=== PATIENT | male | born 1965 ===

== ENCOUNTER 2021-10-16 17:14 | Emergency (ER) | payer SELFPAY ==
[~2021-10-16] VITALS: Ht 175.3 cm; Wt 95.0 kg
--- NOTE | 2021-10-16 17:24 | PHYS DOC ---
General Adult EDM: Chief Complaint: SUICIDAL IDEATION HPI: HPI: Patient is a 56-year-old male coming in via EMS. A park police was driving with the patient is on standing up on it. Patient states he was getting ready to jump and has a 2 page suicide note in his car. Patient admits to methamphetamine and alcohol use today. Patient states he has been feeling depressed and hopeless for the past 2 to 3 months. Patient states he is a history of depression but no other medical conditions. States he otherwise been well. Patient states he has never had to stay inpatient for a psychiatric problem before. (IVETTE RUTHERFORD MD) Review of Systems: Review of Systems: All other systems within normal limits except for as noted in the HPI (IVETTE RUTHERFORD MD) Physical Exam: PE: Constitutional: Well developed, well nourished, no acute distress, non-toxic appearance. [] HENT: Normocephalic, atraumatic, bilateral external ears normal, nose normal. [] Eyes: PERRLA, conjunctiva normal, no discharge. [] Neck: No rigidity, supple, no stridor. [] Cardiovascular: Regular rate and rhythm, brisk cap refill [] Lungs & Thorax: Non labored symmetric respirations, no tachypnea or respiratory distress [] Abdomen: Soft, nondistended. Skin: Warm, dry, no erythema, no rash. [] Back: Unremarkable Extremities: No deformities, range of motion grossly intact, no lower extremity edema [] Neurologic: Alert and oriented X 3, no focal deficits noted. [] Psychologic: Tearful, suicidal ideations. No hallucinations. Answer questions appropriately (IVETTE RUTHERFORD MD) EKG: EKG: Sinus rhythm, heart rate 84 beats minute, normal axis, normal intervals, no STEMI. [] (IVETTE RUTHERFORD MD) Radiology/Procedures: Radiology/Procedures: [] (IVETTE RUTHERFORD MD) Heart Score: C/O Chest Pain: No Risk Factors: Risk Factors: DM, Current or recent (<one month) smoker, HTN, HLP, family history of CAD, obesity. Risk Scores: Score 0 - 3: 2.5% MACE over next 6 weeks - Discharge Home Score 4 - 6: 20.3% MACE over next 6 weeks - Admit for Clinical Observation Score 7 - 10: 72.7% MACE over next 6 weeks - Early Invasive Strategies (IVETTE RUTHERFORD MD) Course & Med Decision Making: Course & Med Decision Making Pertinent Labs and Imaging studies reviewed. (See chart for details) Patient pending labs and PAT evaluation at shift change [] (IVETTE RUTHERFORD MD) Course & Med Decision Making Patient care handed off to me at checkout pending psychiatric team liaison evaluation and possible placement. Patient awake alert and oriented in no acute distress. Vital signs nonconcerning. Laboratory analysis notable for alcohol and methamphetamine. Rapid influenza and COVID-negative. Patient able to eat without issue. Patient medically stable and amenable to transfer for inpatient care at . (VERA CABRALES MD) Dragon Disclaimer: Dragon Disclaimer: This electronic medical record was generated, in whole or in part, using a voice recognition dictation system. (IVETTE RUTHERFORD MD) Departure Departure: Impression: Primary Impression: Suicidal ideations IVETTE RUTHERFORD MD Oct 16, 2021 17:24 VERA CABRALES MD Oct 17, 2021 00:30
[2021-10-16 18:31] LABS: BASO # 0.1 x10^3/uL (0.0-0.2); BASO % 2 % (0-3); EOS # 0.1 x10^3/uL (0.0-0.7); EOS % 1 % (0-3); HEMATOCRIT 38.3 % (39.0-53.0); HEMOGLOBIN 13.1 g/dL (13.0-17.5); LYMPH # 2.7 x10^3/uL (1.0-4.8); LYMPH % 36 % (24-48); MEAN CORPUSCULAR HEMOGLOBIN 32 pg (25-35); MEAN CORPUSCULAR HGB CONC 34 g/dL (31-37); MEAN CORPUSCULAR VOLUME 93 fL (79-100); MONO # 0.5 x10^3/uL (0.0-1.1); MONO % 7 % (0-9); NEUT # 4.2 x10^3uL (1.8-7.7); NEUT % 55 % (31-73); PLATELET COUNT 229 x10^3/uL (140-400); RED BLOOD COUNT 4.11 x10^6/uL (4.30-5.70); WHITE BLOOD COUNT 7.6 x10^3/uL (4.0-11.0)
[2021-10-16 18:35] LABS: CLARITY,URINE CLEAR; COLOR,URINE YELLOW; GLUCOSE,URINE NEG (NEG)
[2021-10-16 18:36] LABS: BACTERIA,URINE 0 /HPF (0-FEW); NITRITE,URINE NEG (NEG); RBC,URINE 0 /HPF (0-2); UROBILINOGEN,URINE 0.2 mg/dL (0.2 mg/dL); WBC,URINE 0 /HPF (0-4)
[2021-10-16 18:36] LABS: CALCIUM 8.3 mg/dL (8.5-10.1); CREATININE 0.8 mg/dL (0.7-1.3); GFR 100.7; POTASSIUM 3.6 mmol/L (3.5-5.1)
[2021-10-16 18:37] LABS: BARBITURATES NEG (NEG); BENZODIAZEPINES NEG (NEG); CANNABINOIDS NEG (NEG); COCAINE NEG (NEG); METHADONE NEG (NEG); OPIATES NEG (NEG); PHENCYCLIDINE NEG (NEG)
[2021-10-16 18:42] LABS: ALBUMIN 3.6 g/dL (3.4-5.0); ALBUMIN/GLOBULIN RATIO 1.2 (1.0-1.7); MAGNESIUM 2.2 mg/dL (1.8-2.4); PHOSPHORUS 3.1 mg/dL (2.6-4.7); TOTAL BILIRUBIN 0.5 mg/dL (0.2-1.0); TOTAL PROTEIN 6.6 g/dL (6.4-8.2)
[2021-10-16 18:43] LABS: ETHANOL 100 mg/dL (0-10); SALIC 2.1 mg/dL (2.8-20.0)
[2021-10-16 18:44] LABS: AMPHETAMINE/METHAMPHETAMINE POS (NEG)
[2021-10-16 18:44] LABS: ACETAMIN < 2.0 mcg/mL (10-30)
[2021-10-16 18:50] LABS: INFLUENZA A PATIENT NEGATIVE (NEGATIVE); INFLUENZA B PATIENT NEGATIVE (NEGATIVE)
--- NOTE | 2021-10-16 23:23 | EKG ---
[address] [address] Test Date: 2021-10-16 Test Time: 17:29:48 Pat Name: ADAN RANDHAWA Department: Room: Gender: M Cake Decorator: : 1965 Requested By: IVETTE RUTHERFORD Order Number: [id number] Reading MD: Lai Greene Measurements Intervals [place] Rate: 84 P: 61 [place]: 168 QRS: 42 QRSD: 80 T: 46 QT: 372 QTc: 443 Interpretive Statements SINUS RHYTHM NORMAL ECG RI6.02 No previous ECG available for comparison Electronically Signed On 10-20-2021 18:37:48 CDT by Lai Greene
[2021-10-17 00:29] VITALS: BP 156/78
[2021-10-17] MEDS ORDERED: diphenhydrAMINE HCL 25 MG CAPSULE PO ONE ×2 (01:39→01:45)
--- NOTE | 2021-10-17 03:01 | EKG ---
[address] [address] Test Date: 2021-10-17 Test Time: 00:34:55 Pat Name: ADAN RANDHAWA Department: Room: Gender: M Retail Loss Prevention Specialist: BETZAIDA : 1965 Requested By: VERA CABRALES Order Number: [id number] Reading MD: Lai Greene Measurements Intervals [place] Rate: 73 P: 63 [place]: 170 QRS: 41 QRSD: 80 T: 79 QT: 408 QTc: 453 Interpretive Statements SINUS RHYTHM NORMAL ECG Electronically Signed On 10-20-2021 18:32:20 CDT by Lai Greene
== END 2021-10-17 03:30 ==
LOC: ER 17:14
DX: R45.851 Suicidal ideations (principal); F32.9 Major depressive disorder, single episode, unspecified; Z20.822 Contact with and (suspected) exposure to COVID-19
CPT/HCPCS: 80053; 80307; 80329; 81001; 83735; 84100; 85025; 87428; 93005; 99285; C9803; G0480; Q0163; U0003